=== PATIENT | male | born 1970 | race American Indian/Alaskan Native ===

== ENCOUNTER 2017-09-03 14:05 | Emergency (ER) | payer MEDICAID ==
--- NOTE | 2017-09-03 17:41 | Emergency Department Report ---
ED Neuro Deficit HPI - General Chief Complaint: Medical Clearance Stated Complaint: LEG PAIN Time Seen by Provider: 09/03/17 16:55 Source: patient Mode of arrival: Ambulatory Limitations: No Limitations - History of Present Illness Initial Comments: Patient is a 47-year-old -[place] male who over years ago suffered a traumatic brain injury who is presenting with frequent falls. Patient at one point was using a walker but does not have anymore the patient's come here asking for assistance with something is that he can walk without falling. Patient does have a healing scrape on his left knee. Patient denies any new head injuries with this falls. Patient states his left upper extremity also sometimes shakes the patient was asking for medication refill for the meds that he takes for the shaking however he does not know the name of this medication. Patient is a poor historian and most likely secondary to his history of traumatic brain injury. This is denying any other symptoms at this time. - Related Data Home Medications: Previous Rx's Medication Instructions Recorded Last Taken Type Multivit-Minerals/Folic Acid 200 mcg PO TID #60 tab.chew 01/02/15 Unknown Rx [Adult Multi Gummies] Thiamine HCl 500 mg PO QDAY #60 tablet 01/02/15 Unknown Rx LORazepam [Ativan] 1 mg PO TID PRN #6 tablet 09/03/17 Unknown Rx Allergies/Adverse Reactions: Allergies Allergy/AdvReac Type Severity Reaction Status Date / Time No Known Allergies Allergy Verified 09/03/17 14:26 ED Review of Systems ROS: Stated complaint: LEG PAIN Other details as noted in HPI Comment: All other systems reviewed and negative ED Past Medical Hx - Past Medical History Additional medical history: "BRAIN INJURY" - Surgical History Past Surgical History?: Yes Additional Surgical History: BACK SURGERY - Social History Smoking Status: Current Every Day Smoker Substance Use Type: Alcohol - Medications Home Medications: Home Medications Medication Instructions Recorded Confirmed Last Taken Type Multivit-Minerals/Folic Acid 200 mcg PO TID #60 tab.chew 01/02/15 Unknown Rx [Adult Multi Gummies] Thiamine HCl 500 mg PO QDAY #60 tablet 01/02/15 Unknown Rx LORazepam [Ativan] 1 mg PO TID PRN #6 tablet 09/03/17 Unknown Rx ED Neuro Physical Exam - General Limitations: No Limitations General appearance: alert, in no apparent distress Suspected Stroke: No - Head Head exam: Present: atraumatic, normocephalic - Eye Eye exam: Present: normal appearance - ENT ENT exam: Present: mucous membranes moist - Neck Neck exam: Present: normal inspection - Respiratory Respiratory exam: Present: normal lung sounds bilaterally. Absent: respiratory distress - Cardiovascular Cardiovascular Exam: Present: regular rate, normal rhythm. Absent: systolic murmur, diastolic murmur, rubs, gallop - GI/Abdominal GI/Abdominal exam: Present: soft, normal bowel sounds - Rectal Rectal exam: Present: deferred - Extremities Exam Extremities exam: Present: normal inspection, other (left knee abrasion) - Back Exam Back exam: Present: normal inspection - Neurological Exam Neurological exam: Present: alert, oriented X3 - Psychiatric Psychiatric exam: Present: normal affect, normal mood - Skin Skin exam: Present: warm, dry, intact, normal color. Absent: rash ED Course Vital Signs 09/03/17 14:27 Temperature 98.5 F Pulse Rate 96 H Respiratory 18 Rate Blood Pressure 126/80 O2 Sat by Pulse 98 Oximetry - Medical Decision Making Patient is here with a nonmedical emergency however because of his dramatic brain injury he was not understanding where to seek help and so he came to the emergency department. Patient will be given a prescription for cane as he can get it under his Medicaid coverage patient also was started on Ativan. Patient will be given 10 tablets. Patient also has been referred to [facility] as well. Critical care attestation.: If time is entered above; I have spent that time in minutes in the direct care of this critically ill patient, excluding procedure time. ED Disposition Clinical Impression: Ataxia Traumatic brain injury Qualifiers: Encounter type: subsequent encounter Loss of consciousness presence/duration: with LOC of unspecified duration Qualified Code(s): S06.9X9D - Unspecified intracranial injury with loss of consciousness of unspecified duration, subsequent encounter Disposition: DC-01 TO HOME OR SELFCARE Is pt being admited?: No Does the pt Need Aspirin: No Condition: Stable Prescriptions: LORazepam [Ativan] 1 mg PO TID PRN #6 tablet PRN Reason: Muscle Spasm Referrals: PRIMARY CARE, [Primary Care Provider] - 3-5 Days
[2017-09-03 17:56] VITALS: BP 136/72
== END 2017-09-03 17:55 | disposition home or self-care (01) ==
LOC: ED 14:05
DX: S06.9X9D Unspecified intracranial injury with loss of consciousness of unspecified duration, subsequent encounter (principal); R27.0 Ataxia, unspecified; F17.200 Nicotine dependence, unspecified, uncomplicated; X58.XXXD Exposure to other specified factors, subsequent encounter
CPT/HCPCS: 99282

== ENCOUNTER 2018-04-02 08:19 | Emergency (ER) | payer MEDICAID ==
--- NOTE | 2018-04-02 09:37 | Emergency Department Report ---
[facility] Chief Complaint: Eye Problems Stated Complaint: (R) EYE IRRITATION Time Seen by Provider: 04/02/18 09:24 Duration: 3 Days Side: Right Severity: mild Symptoms: Yes Eye Itching, Yes Eye Redness, Yes Mucous Drainage, No Eye Pain, No Purulent Drainage, No Blurred Vision, No Preceding URI, No H/O Allergic Rhinitis, No Contact Lens Use, No Trauma, No Fever, No Headache Other History: This is a 47-year-old -[place] male who presents with swelling and discharge from right eye for 3 days. Patient states when he wakes up in the morning it is red, itching, and crusted closed. He is applying eye gtts which improve redness but itching and swelling remain. He denies change in vision or grinding sensation. ED Review of Systems ROS: Stated complaint: (R) EYE IRRITATION Other details as noted in HPI Constitutional: denies: chills, fever Eyes: eye discharge. denies: eye pain, vision change ENT: denies: ear pain, throat pain Respiratory: denies: cough, shortness of breath, wheezing Cardiovascular: denies: chest pain, palpitations Gastrointestinal: denies: abdominal pain, nausea, diarrhea Neurological: denies: headache, weakness, paresthesias Psychiatric: denies: anxiety, depression ED Past Medical Hx - Past Medical History Previous Medical History?: Yes Additional medical history: "BRAIN INJURY" - Surgical History Past Surgical History?: Yes Additional Surgical History: BACK SURGERY - Social History Smoking Status: Current Every Day Smoker Substance Use Type: None - Medications Home Medications: Home Medications Medication Instructions Recorded Confirmed Last Taken Type Multivit-Minerals/Folic Acid 200 mcg PO TID #60 tab.chew 01/02/15 Unknown Rx [Adult Multi Gummies] Thiamine HCl 500 mg PO QDAY #60 tablet 01/02/15 Unknown Rx LORazepam [Ativan] 1 mg PO TID PRN #6 tablet 09/03/17 Unknown Rx Erythromycin [Erythromycin Ophth 10 applic OP Q4H #1 tube 04/02/18 Unknown Rx Oint] [facility] Exam - Exam General: Vital signs noted. No distress. Alert and acting appropriately. Eye Exam: Right Injection, Right Chemosis, Right Mucous Discharge, Both EOMI, Neither Abnormal Pupil, Neither Eye Foreign Body, Neither Lid Foreign Body, Neither Purulent Discharge, Neither Fluorescein Uptake, Neither Fluorescein Uptake (slit lamp), Neither Cell/Flare (slit lamp), Neither Corneal Edema, Neither Photophobia HEENT: No Nasal Congestion, No Pharyngeal Erythema Remainder of HEENT: Normal Lungs: Yes Clear Lung Sounds, Yes Good Air Exchange, No Wheezes, No Stridor, No Cough, No Nasal Flaring, No Retractions, No Use of Accessory Muscles ED Course Vital Signs 04/02/18 08:23 Temperature 97.9 F Pulse Rate 86 Respiratory 16 Rate Blood Pressure 144/89 O2 Sat by Pulse 98 Oximetry ED Medical Decision Making - Medical Decision Making This is a 47-year-old male presents with pink eye with mucous discharge to right eye for 3 days. Patient is stable and was examined by me. Vitals normal. Physical assessment susceptible of conjunctivitis of right. Start erythromycin ointment. Discussed plan with patient and she agreed with plan. Discharged home in stable condition. Referral to [facility]. Follow up with PCP in 24-72 hours. Critical care attestation.: If time is entered above; I have spent that time in minutes in the direct care of this critically ill patient, excluding procedure time. ED Disposition Clinical Impression: Conjunctivitis Qualifiers: Conjunctivitis type: acute Acute conjunctivitis type: bacterial Laterality: right Qualified Code(s): H10.31 - Unspecified acute conjunctivitis, right eye Disposition: -01 TO HOME OR SELFCARE Is pt being admited?: No Does the pt Need Aspirin: No Condition: Stable Instructions: Conjunctivitis (ED) Additional Instructions: Pinkeye is very contagious so please wash hands frequently. Don't share any towels or bedding to prevent spread of infection. Use cool compress to each eye to decrease swelling. Avoid rubbing or touching eyes, because rubbing eyes can cause worsening symptoms. Take medication as prescribed. Return to ER if swelling don't improve or difficulty breathing after 2 days of medication. Prescriptions: Erythromycin [Erythromycin Ophth Oint] 10 applic OP Q4H #1 tube Referrals: YAMILE CLARK MD [Primary Care Provider] - 3-5 Days ALICIA VERDUGO MD [Staff Physician] - 3-5 Days [facility] [Provider Group] - 3-5 Days Forms: Work/School Release Form(ED) Time of Disposition: 09:36
== END 2018-04-02 09:52 | disposition home or self-care (01) ==
LOC: ED 08:19
CPT/HCPCS: 99282

== ENCOUNTER 2019-03-08 12:44 | Outpatient (CLI) | payer MEDICAID ==
[2019-03-08 13:09] LABS: Basophils % (Auto) 0.7 % (0.0-1.8); Eosinophils # (Auto) 0.1 K/mm3 (0.0-0.4); Eosinophils % (Auto) 1.1 % (0.0-4.3); Hemoglobin 17.9 gm/dl (11.8-15.2); Lymphocytes # (Auto) 1.8 K/mm3 (1.2-5.4); Lymphocytes % (Auto) 30.9 % (13.4-35.0); Mean Corpuscular HGB Conc 34 % (32-34); Mean Corpuscular Volume 102 fl (84-94); Monocytes # (Auto) 0.9 K/mm3 (0.0-0.8); Monocytes % (Auto) 15.2 % (0.0-7.3); Platelet Count 233 K/mm3 (140-440); Red Cell Distribution Width 13.2 % (13.2-15.2)
[2019-03-08 13:36] LABS: Alanine Aminotransferase 23 units/L (7-56); Albumin 4.2 g/dL (3.9-5); BUN/Creatinine Ratio 13; Blood Urea Nitrogen 12 mg/dL (9-20); Calcium 9.4 mg/dL (8.4-10.2); Hemolysis Index 11; Iron 142 ug/dL (49-181); Total Iron Binding Capacity 293 mcg/dL (250-450)
== END 2019-03-08 12:45 | disposition home or self-care (01) ==
LOC: LAB 12:44
PROVIDERS: ATTEND Internal Medicine
DX: R71.8 Other abnormality of red blood cells (principal)
CPT/HCPCS: 36415; 80053; 82607; 82728; 82747; 83550; 85025